=== PATIENT | male | born 1980 | race Caucasian/White ===

== ENCOUNTER 2017-10-09 08:15 | Emergency (ER) | payer OTHER ==
[~2017-10-09] VITALS: Ht 180.3 cm; Wt 95.2 kg
[~2017-10-09 08:15] MED LIST: CITALOPRAM HBR40 MG PO; DAY TIME SOFTG1 EACH PO; HYDROCODON-ACE1 EA10 PO; OMEPRAZOLE40 MG PO; SUDOGEST60 MG PO
[2017-10-09] MEDS ORDERED: CLOBETASOL PROP50 ML TOP (08:28)
[2017-10-09] MEDS ORDERED: LEVOFLOXACIN500 MG PO (08:28)
[2017-10-09] MEDS ORDERED: NAPROXEN500 MG PO (10:34)
== END 2017-10-09 11:13 | disposition home or self-care (01) ==
LOC: ED 08:15
PROC: 0HQGXZZ Repair Left Hand Skin, External Approach (ICD-10-PCS; principal; 2017-10-09)
DX: S61.211A Laceration without foreign body of left index finger without damage to nail, initial encounter (principal); Z23 Encounter for immunization; F32.9 Major depressive disorder, single episode, unspecified; F17.200 Nicotine dependence, unspecified, uncomplicated; Z98.890 Other specified postprocedural states; W26.0XXA Contact with knife, initial encounter; Y92.69 Other specified industrial and construction area as the place of occurrence of the external cause; Y99.0 Civilian activity done for income or pay
CPT/HCPCS: 90471; 90715; 99282